=== PATIENT | female | born 1990 | race African-American/Black ===

== ENCOUNTER 2017-03-27 13:46 | Observation (INO) | payer MEDICAID ==
[~2017-03-27] VITALS: Ht 149.9 cm; Wt 64.0 kg
[2017-03-27] MEDS ORDERED: PREN-88 PO (14:35)
[2017-03-27] MEDS ORDERED: ASPI-1035 PO (14:35)
[2017-03-27] MEDS ORDERED: PRED5TAB48 PO (14:35)
== END 2017-03-27 15:00 | disposition home or self-care (01) ==
LOC: L&D 13:46
PROVIDERS: ADMIT Obstetrics & Gynecology; ATTEND Obstetrics & Gynecology
DX: O26.893 Other specified pregnancy related conditions, third trimester (principal); M54.9 Dorsalgia, unspecified; O62.9 Abnormality of forces of labor, unspecified; Z3A.39 39 weeks gestation of pregnancy
CPT/HCPCS: 99281; G0378

== ENCOUNTER 2017-04-04 14:49 | Observation (INO) | payer MEDICAID ==
[~2017-04-04] VITALS: Ht 149.9 cm; Wt 65.3 kg
[~2017-04-04 14:49] MED LIST: ASPI-1035 PO; PRED5TAB48 PO; PREN-88 PO
== END 2017-04-04 17:00 | disposition home or self-care (01) ==
LOC: L&D 14:49
PROVIDERS: ADMIT Specialist; ATTEND Specialist
DX: O26.899 Other specified pregnancy related conditions, unspecified trimester (principal); R10.9 Unspecified abdominal pain; Z3A.00 Weeks of gestation of pregnancy not specified
CPT/HCPCS: 76815; 76818; 99281; G0378

== ENCOUNTER 2019-09-17 19:28 | Observation (INO) | payer MEDICAID ==
[~2019-09-17] VITALS: Ht 121.9 cm; Wt 58.1 kg
[~2019-09-17 19:28] MED LIST changes: -ASPI-1035 PO; -PREN-88 PO
[2019-09-17] MEDS ORDERED: DEXT 5%/LACTATED RINGERS 1,000 ML IV STA ×2 (20:07→20:11)
[2019-09-17 21:35] LABS: EOSINOPHILS % 0.5 % (0.0-5.0); HEMATOCRIT. 35.2 % (36.0-48.0); LYMPHOCYTES % 15.6 % (20.0-50.0); MEAN CORPUSCULAR VOLUME 84.7 fL (81.0-99.0); MEAN PLATELET VOLUME 9.7 fl (7.4-10.4); MONOCYTES % 8.8 % (2.0-8.0); NEUTROPHILS % 74.1 % (40.0-76.0); PLATELET 271 x1000/uL (130-400); RED BLOOD CELL COUNT 4.15 mill/uL (4.2-5.4); RED CELL DISTRIBUTION WIDTH 14.1 % (11.6-14.6)
== END 2019-09-17 22:24 | disposition home or self-care (01) ==
LOC: ER 19:28 → 8 EST LDRP 19:40
PROVIDERS: ADMIT Obstetrics & Gynecology; ATTEND Obstetrics & Gynecology
DX: R42 Dizziness and giddiness (principal)
CPT/HCPCS: 36415; 85025; 99284; G0378; 99281

== ENCOUNTER 2020-08-30 23:50 | Emergency (ER) | payer MEDICAID, OTHER ==
[~2020-08-30] VITALS: Ht 165.1 cm; Wt 62.0 kg
[2020-08-31] MEDS ORDERED: BACITRACIN ZINC OINT UDPKT TOP ONE (00:15)
[2020-08-31] MEDS ORDERED: ACETAMINOPHEN 325MG TABLET PO ONE (00:15)
[2020-08-31] MEDS ORDERED: LIDOCAINE HCL/PF 1% 10 MG/ML 5ML VIAL IJ ONE (00:15)
[2020-08-31] MEDS ORDERED: TETANUS, DIPHTHERIA, PERTUSSIS VAC/PF 0.5ML (>7YR OLD) IM ONE (00:15)
[2020-08-31 01:34] VITALS: BP 136/88
== END 2020-08-31 01:48 | disposition home or self-care (01) ==
LOC: ER 23:50
DX: S61.211A Laceration without foreign body of left index finger without damage to nail, initial encounter (principal); W26.8XXA Contact with other sharp object(s), not elsewhere classified, initial encounter; Y93.89 Activity, other specified; Y92.89 Other specified places as the place of occurrence of the external cause; Y99.8 Other external cause status
CPT/HCPCS: 12001; 90471; 90715; 99283; J3490

== ENCOUNTER 2021-08-30 19:11 | Emergency (ER) | payer MEDICAID, OTHER ==
[~2021-08-30] VITALS: Ht 149.9 cm; Wt 60.9 kg
[2021-08-31 00:50] VITALS: BP 143/95
== END 2021-08-31 01:10 | disposition home or self-care (01) ==
LOC: ER 19:11
DX: U07.1 COVID-19 (principal); R05.9 Cough, unspecified; Z90.49 Acquired absence of other specified parts of digestive tract
CPT/HCPCS: 99283; C9803; U0003; U0005

== ENCOUNTER 2021-08-31 20:12 | Emergency (ER) | payer OTHER ==
[~2021-08-31] VITALS: Ht 157.5 cm; Wt 61.0 kg
[2021-08-31] MEDS ORDERED: ACETAMINOPHEN 500MG TABLET PO ONE (22:15)
[2021-08-31] MEDS ORDERED: IBUPROFEN 600MG TABLET PO ONE (22:45)
[2021-09-01 00:13] VITALS: BP 123/84
== END 2021-09-01 00:14 | disposition home health service (06) ==
LOC: ER 20:12
DX: U07.1 COVID-19 (principal)
CPT/HCPCS: 81025; 99283